=== PATIENT | female | born 1980 | race Hispanic/Latino ===

== ENCOUNTER 2023-05-22 20:22 | Emergency (ER) | payer SELFPAY ==
[~2023-05-22] VITALS: Ht 157.5 cm; Wt 80.0 kg
[2023-05-22] VITALS (11 sets, daily range): BP systolic 93–126; BP diastolic 57–82
[2023-05-22 21:14] LABS: BASO% 0.2 % (0-3); EOS% 2.4 % (0-8); HEMATOCRIT 40.4 % (37.0-47.0); HEMOGLOBIN 13.5 g/dl (12.0-16.0); IMMATURE GRANULOCYTES 0.1 % (0.0-5.0); LYMPH% 25.9 % (15-41); MEAN CELL VOLUME 90.8 fL CALC (80.0-100.0); MEAN CORPUSCULAR HGB 30.3 pG CALC (26.0-32.0); MEAN CORPUSCULAR HGB CONC 33.4 g/dL CAL (32.0-36.0); MONO% 9.9 % (2-13); NEUT# 5.53 thou/uL (2.00-7.15); NEUT% 61.5 % (42-76); RED BLOOD COUNT 4.45 mill/uL (4.20-5.60); RED CELL DISTRI WIDTH 11.9 % (11.5-15.5)
[2023-05-22 21:23] LABS: ALBUMIN 4.1 g/dL (3.2-5.0); BILIRUBIN, TOTAL 0.3 mg/dL (0.02-1.3); CREATININE 1.3 mg/dL (0.5-1.0); POTASSIUM 4.1 mmol/l (3.5-5.1); TOTAL PROTEIN 7.5 g/dL (6.3-8.2)
[2023-05-22 23:18] LABS: URINE BILIRUBIN - DIPSTICK Negative (NEGATIVE); URINE BLOOD DIPSTICK Large (NEGATIVE); URINE GLUCOSE - DIPSTICK Negative (NEGATIVE); URINE KETONE Negative (NEGATIVE); URINE LEUK ESTERASE Negative (NEGATIVE); URINE NITRITE - DIPSTICK Negative (Negative); URINE PROTEIN - DIPSTICK Negative (NEG-TRACE); URINE UROBILINOGEN - DIPSTICK 0.2 E.U./dL (0.2)
[2023-05-22 23:20] LABS: URINE COLOR Yellow
[2023-05-22 23:24] LABS: URINE BACTERIA MANY hpf; URINE RBC 50-100 RBC/hpf (0-5); URINE SQUAMOUS EPITHELIAL CELL FEW EPI/hpf (0-FEW)
[2023-05-23] VITALS: BP 109/69
[2023-05-23 00:15] VITALS: BP 101/69
[2023-05-23 00:30] VITALS: BP 101/65
[2023-05-23 00:45] VITALS: BP 106/76
[2023-05-23 01:00] VITALS: BP 108/72
[2023-05-23 01:07] VITALS: BP 108/72
== END 2023-05-23 01:07 | disposition home or self-care (01) | DRG 694 ==
LOC: ED 20:22
PROVIDERS: Family Medicine
DX: N13.2 Hydronephrosis with renal and ureteral calculous obstruction (principal)

== ENCOUNTER 2024-06-09 18:46 | Emergency (ER) | payer OTHER ==
[~2024-06-09] VITALS: Ht 160 cm; Wt 63.0 kg
[~2024-06-09 18:46] MED LIST: TORADOL PO
[2024-06-09 19:06] VITALS: BP 124/73
[2024-06-09 19:30] VITALS: BP 103/67
[2024-06-09] MEDS ORDERED: ONDANSETRON 4 MG/TAB ODT PO ONE (19:30)
[2024-06-09] MEDS ORDERED: MORPHINE SULFATE 4 MG/ML VIAL IM ONE (19:30)
[2024-06-09] MEDS ORDERED: DEXAMETHASONE 2 MG/TAB TAB PO ONE (19:30)
[2024-06-09] MEDS ORDERED: KETOROLAC TROMETHAMINE 15 MG/ML SDV IM ONE (20:15)
[2024-06-09] MEDS ORDERED: HYDROcodone 7.5 MG/Acetaminophen 325 MG/COMBO PO ONE (23:15)
[2024-06-09 23:34] VITALS: BP 103/67
== END 2024-06-09 23:34 | disposition home or self-care (01) | DRG 556 ==
LOC: ED 18:46
DX: M25.512 Pain in left shoulder (principal); R51.9 Headache, unspecified; M53.3 Sacrococcygeal disorders, not elsewhere classified; W01.198A Fall on same level from slipping, tripping and stumbling with subsequent striking against other object, initial encounter; Y92.219 Unspecified school as the place of occurrence of the external cause; Y99.0 Civilian activity done for income or pay